=== PATIENT | female | born 1975 | race Two or more races ===

== ENCOUNTER 2017-07-21 09:24 | Outpatient (CLI) | payer OTHER | END 2017-07-21 11:24 | disposition home or self-care (01) | LOC: ECT 09:24 | DX: F33.2 Major depressive disorder, recurrent severe without psychotic features (principal); F41.9 Anxiety disorder, unspecified; Z91.5 Personal history of self-harm; Z87.891 Personal history of nicotine dependence; E11.9 Type 2 diabetes mellitus without complications; E78.5 Hyperlipidemia, unspecified; G47.33 Obstructive sleep apnea (adult) (pediatric); Z90.49 Acquired absence of other specified parts of digestive tract; M19.90 Unspecified osteoarthritis, unspecified site; Z88.8 Allergy status to other drugs, medicaments and biological substances; Z88.6 Allergy status to analgesic agent ==

== ENCOUNTER 2017-07-29 06:05 | Outpatient (RCR) | payer OTHER ==
[~2017-07-29] VITALS: Ht 188 cm; Wt 153.3 kg
[2017-07-29] MEDS ORDERED: Midazolam 2mg/2ml Inj ONE (06:06)
[2017-07-29] MEDS ORDERED: Methohexital Sodium Syr 100mg/10ml IVP ONE (06:06)
[2017-07-29] MEDS ORDERED: Succinylcholine 20mg/ml 10ml vial ONE (06:06)
[2017-07-29] MEDS ORDERED: NS 500ML ONE (06:06)
[2017-07-29 09:18] VITALS: BP 129/76
[2017-07-29] MEDS ORDERED: Sodium Chloride 500ML 500 ML IV ONE (09:35)
[2017-07-29 09:40] VITALS: BP 130/56
[2017-07-29 09:45] VITALS: BP 130/66
[2017-07-29 09:50] VITALS: BP 128/68
[2017-07-29 09:55] VITALS: BP 130/56
== END 2017-07-30 | disposition home or self-care (01) ==
LOC: ECT 06:05
DX: F33.2 Major depressive disorder, recurrent severe without psychotic features (principal); F41.9 Anxiety disorder, unspecified; M19.90 Unspecified osteoarthritis, unspecified site; E11.9 Type 2 diabetes mellitus without complications; G47.30 Sleep apnea, unspecified; E78.5 Hyperlipidemia, unspecified; Z90.49 Acquired absence of other specified parts of digestive tract
CPT/HCPCS: 90870; J0330; J2250; J7040

== ENCOUNTER 2017-07-31 07:52 | Outpatient (RCR) | payer OTHER ==
[~2017-07-31] VITALS: Ht 188 cm; Wt 153.3 kg
[2017-07-31] MEDS ORDERED: NS 500ML ONE ×3 (07:53)
[2017-07-31] MEDS ORDERED: Midazolam 2mg/2ml Inj ONE ×3 (07:53)
[2017-07-31] MEDS ORDERED: Succinylcholine 20mg/ml 10ml vial ONE ×3 (07:53)
[2017-07-31] MEDS ORDERED: Glycopyrrolate 0.2mg/ml 1ml Vial ONE ×3 (07:53)
[2017-07-31] MEDS ORDERED: Ketorolac 60mg Inj ONE ×3 (07:53)
[2017-07-31] MEDS ORDERED: Methohexital Sodium Syr 100mg/10ml IVP ONE ×3 (07:53)
[2017-07-31 08:55] VITALS: BP 134/71
[2017-07-31] MEDS ORDERED: Sodium Chloride 500ML 500 ML IV ONE (09:14)
[2017-07-31 09:15] VITALS: BP 110/50
[2017-07-31 09:20] VITALS: BP 114/57
[2017-07-31 09:25] VITALS: BP 121/61
[2017-07-31 09:30] VITALS: BP 119/57
[2017-07-31 10:00] VITALS: BP 119/57
[2017-08-03 10:01] VITALS: BP 127/55
[2017-08-03] MEDS ORDERED: Sodium Chloride 500ML 500 ML IV ONE (10:15)
[2017-08-03 10:20] VITALS: BP 138/68
[2017-08-03 10:25] VITALS: BP 131/74
[2017-08-03 10:30] VITALS: BP 134/58
[2017-08-03 10:35] VITALS: BP 138/60
[2017-08-05] MEDS ORDERED: Glycopyrrolate 0.2mg/ml 1ml Vial ONE (08:00)
[2017-08-05] MEDS ORDERED: Midazolam 2mg/2ml Inj ONE (08:00)
[2017-08-05] MEDS ORDERED: NS 500ML ONE (08:00)
[2017-08-05] MEDS ORDERED: Ketorolac 60mg Inj ONE (08:00)
[2017-08-05] MEDS ORDERED: Succinylcholine 20mg/ml 10ml vial ONE (08:00)
[2017-08-05] MEDS ORDERED: Methohexital Sodium Syr 100mg/10ml IVP ONE (08:00)
[2017-08-05 09:45] VITALS: BP 105/66
[2017-08-05] MEDS ORDERED: Sodium Chloride 500ML 500 ML IV ONE (10:03)
[2017-08-05 10:05] VITALS: BP 117/51
[2017-08-05 10:10] VITALS: BP 110/51
[2017-08-05 10:15] VITALS: BP 113/63
[2017-08-05 10:20] VITALS: BP 118/60
[2017-08-05 10:25] VITALS: BP 115/58
[2017-08-07] MEDS ORDERED: Glycopyrrolate 0.2mg/ml 1ml Vial ONE (07:00)
[2017-08-07] MEDS ORDERED: Succinylcholine 20mg/ml 10ml vial ONE (07:00)
[2017-08-07] MEDS ORDERED: NS 500ML ONE (07:00)
[2017-08-07] MEDS ORDERED: Methohexital Sodium Syr 100mg/10ml IVP ONE (07:00)
[2017-08-07] MEDS ORDERED: Ketorolac 60mg Inj ONE (07:00)
[2017-08-07] MEDS ORDERED: Midazolam 2mg/2ml Inj ONE (07:00)
[2017-08-07] MEDS ORDERED: Sodium Chloride 500ML 500 ML IV ONE (09:20)
[2017-08-07 09:23] VITALS: BP 116/71
[2017-08-07 09:40] VITALS: BP 125/69
[2017-08-07 09:45] VITALS: BP 122/64
[2017-08-07 09:50] VITALS: BP 122/64
[2017-08-07 09:55] VITALS: BP 135/62
[2017-08-10] MEDS ORDERED: Sodium Chloride 500ML 500 ML IV ONE (07:24)
[2017-08-10] MEDS ORDERED: Glycopyrrolate 0.2mg/ml 1ml Vial ONE (08:00)
[2017-08-10] MEDS ORDERED: Ketorolac 60mg Inj ONE (08:00)
[2017-08-10] MEDS ORDERED: Succinylcholine 20mg/ml 10ml vial ONE (08:00)
[2017-08-10] MEDS ORDERED: NS 500ML ONE (08:00)
[2017-08-10] MEDS ORDERED: Midazolam 2mg/2ml Inj ONE (08:00)
[2017-08-10] MEDS ORDERED: Methohexital Sodium Syr 100mg/10ml IVP ONE (08:00)
[2017-08-10 09:05] VITALS: BP 124/59
[2017-08-10 09:25] VITALS: BP 124/59
[2017-08-10 09:30] VITALS: BP 120/62
[2017-08-10 09:35] VITALS: BP 114/59
[2017-08-10 09:40] VITALS: BP 122/60
[2017-08-12 09:20] VITALS: BP 132/78
[2017-08-12 09:35] VITALS: BP 123/66
[2017-08-12] MEDS ORDERED: Sodium Chloride 500ML 500 ML IV ONE (09:35)
[2017-08-12 09:40] VITALS: BP 122/62
[2017-08-12 09:45] VITALS: BP 130/61
[2017-08-12 09:50] VITALS: BP 134/65
[2017-08-14] MEDS ORDERED: Methohexital Sodium Syr 100mg/10ml IVP ONE (08:00)
[2017-08-14] MEDS ORDERED: NS 500ML ONE (08:00)
[2017-08-14] MEDS ORDERED: Midazolam 2mg/2ml Inj ONE (08:00)
[2017-08-14] MEDS ORDERED: Succinylcholine 20mg/ml 10ml vial ONE (08:00)
[2017-08-14] MEDS ORDERED: Ketorolac 60mg Inj ONE (08:00)
[2017-08-14 09:13] VITALS: BP 117/76
[2017-08-14] MEDS ORDERED: Sodium Chloride 500ML 500 ML IV ONE (09:36)
[2017-08-14 09:40] VITALS: BP 120/60
[2017-08-14 09:45] VITALS: BP 132/68
[2017-08-14 09:50] VITALS: BP 139/69
[2017-08-14 09:55] VITALS: BP 129/79
[2017-08-17] MEDS ORDERED: NS 500ML ONE (06:00)
[2017-08-17] MEDS ORDERED: Succinylcholine 20mg/ml 10ml vial ONE (06:00)
[2017-08-17] MEDS ORDERED: Midazolam 2mg/2ml Inj ONE (06:00)
[2017-08-17] MEDS ORDERED: Ketorolac 60mg Inj ONE (06:00)
[2017-08-17] MEDS ORDERED: Methohexital Sodium Syr 100mg/10ml IVP ONE (06:00)
[2017-08-17] MEDS ORDERED: Sodium Chloride 500ML 500 ML IV ONE ×2 (10:50)
[2017-08-17 10:55] VITALS: BP 148/78
[2017-08-17 11:00] VITALS: BP 147/79
[2017-08-17 11:05] VITALS: BP 151/77
[2017-08-17 11:10] VITALS: BP 145/79
[2017-08-21] MEDS ORDERED: Succinylcholine 20mg/ml 10ml vial ONE (08:00)
[2017-08-21] MEDS ORDERED: Methohexital Sodium Syr 100mg/10ml IVP ONE (08:00)
[2017-08-21] MEDS ORDERED: Midazolam 2mg/2ml Inj ONE (08:00)
[2017-08-21] MEDS ORDERED: NS 500ML ONE (08:00)
[2017-08-21] MEDS ORDERED: Glycopyrrolate 0.2mg/ml 1ml Vial ONE (08:00)
[2017-08-21 09:21] VITALS: BP 152/90
[2017-08-21] MEDS ORDERED: Sodium Chloride 500ML 500 ML IV ONE (09:31)
[2017-08-21 09:35] VITALS: BP 149/76
[2017-08-21 09:40] VITALS: BP 148/68
[2017-08-21 09:45] VITALS: BP 148/70
[2017-08-21 09:50] VITALS: BP 157/62
[2017-08-21 09:55] VITALS: BP 154/85
[2017-08-26] MEDS ORDERED: Succinylcholine 20mg/ml 10ml vial ONE (08:00)
[2017-08-26] MEDS ORDERED: Methohexital Sodium Syr 100mg/10ml IVP ONE (08:00)
[2017-08-26] MEDS ORDERED: NS 500ML ONE (08:00)
[2017-08-26] MEDS ORDERED: Midazolam 2mg/2ml Inj ONE (08:00)
[2017-08-26] MEDS ORDERED: Glycopyrrolate 0.2mg/ml 1ml Vial ONE (08:00)
[2017-08-26 12:08] VITALS: BP 141/90
[2017-08-26] MEDS ORDERED: Sodium Chloride 500ML 500 ML IV ONE (12:29)
[2017-08-26] MEDS ORDERED: Atropine Sulfate 0.4mg/ml inj IVP PRN (12:29)
[2017-08-26 12:30] VITALS: BP 146/61
[2017-08-26 12:35] VITALS: BP 136/58
[2017-08-26 12:40] VITALS: BP 116/66
[2017-08-26 12:45] VITALS: BP 131/64
== END 2017-08-30 | disposition home or self-care (01) ==
LOC: ECT 07:52
DX: F33.2 Major depressive disorder, recurrent severe without psychotic features (principal)
CPT/HCPCS: 90870; J0330; J2250; J7040

== ENCOUNTER 2017-09-02 07:47 | Outpatient (RCR) | payer OTHER | END 2017-09-30 | disposition home or self-care (01) | LOC: ECT 07:47 | DX: F33.2 Major depressive disorder, recurrent severe without psychotic features (principal) ==